=== PATIENT | female | born 1995 | race Caucasian/White ===

== ENCOUNTER 2017-07-27 21:26 | Emergency (ER) | payer OTHER ==
[2017-07-27] MEDS ORDERED: TAMIFLU75 M1 PO (22:03)
--- NOTE | 2017-07-28 00:28 | RADIOLOGY REPORT ---
PA AND LATERAL CHEST RADIOGRAPH CLINICAL INFORMATION: Cough, fever, and shortness of breath COMPARISON: None available. TECHNIQUE: 2 views of the chest were obtained. FINDINGS: Focal consolidation within the posterior aspect of the right lower lobe medially, most suggestive of pneumonia given the clinical history. The lungs are otherwise clear. There is no pneumothorax. Cardiac silhouette size is normal. There are no acute osseous findings. IMPRESSION: Imaging findings are most suggestive of right lower lobe pneumonia. Radiographic follow-up recommended following conservative treatment to document resolution.
[2017-07-28] MEDS ORDERED: IBUPROFEN800 M1 PO (00:40)
[2017-07-28] MEDS ORDERED: DOXYCYCLINE HY100 M4 PO (00:40)
[2017-07-28] MEDS ORDERED: PROAIR HFA8.5 GM INH (00:41)
--- NOTE | 2017-07-28 00:41 | ED INFLUENZA/URI COMPLAINT ---
History of Present Illness General Chief Complaint: Upper Respiratory Sx/Fever Stated Complaint: FLU LIKE SYMPTOMS,FEVER Source: patient Exam Limitations: no limitations Vital Signs & Intake/Output Vital Signs & Intake/Output Vital Signs Date Time Temp Pulse Resp B/P B/P Pulse O2 O2 Flow FiO2 Mean Ox Delivery Rate 07/278 97.7 07/277 97.7 07/272 101.8 122 22 106/72 97 Room Air ED Intake and Output 07/28 0000 07/27 1200 Intake Total 60 Output Total Balance 60 Intake, Oral 60 Patient 120 lb Weight Allergies Coded Allergies: NO KNOWN ALLERGIES (02/25/12) Reconcile Medications Albuterol Sulfate (Proair Hfa) 90 MCG HFA.AER.AD 2 PUF INH Q4-6 PRN PRN COUGH/ SOB Doxycycline Hyclate 100 MG TABLET 1 TAB PO BID PNA Ibuprofen 800 MG TABLET 1 TAB PO TID PAIN/FEVER Oseltamivir Phosphate (Tamiflu) 75 MG CAPSULE 1 CAP PO BID ANTIVIRAL ( Reported) Triage Note: PER PT DX WITH FLU 2 DAYS AGO, CONT WITH FEVER AND FEELING REALLY WEAK WITH COUGH,LASST TYLENOL WAS 6PM WITH MUCINEX, HAS NOT TAKEN 2ND DOSE OF TAMIFLU TODAY, ALSO ON PROMETHAZINE,COUGH MED BUT MAKES HER VOMIT Triage Nurses Notes Reviewed? yes Onset: Abrupt Duration: day(s): (2), constant, continues in ED, getting worse Timing: single episode today Severity: mild, moderate Severity Numbers: 7 Prior Episodes/Possible Cause: no prior episodes No Modifying Factors: none Associated Symptoms: cough, fever/chills, headache, muscle aches, nasal congestion, nasal drainage, wheezing LMP (ages 10-50): now : No Patient currently breastfeeds: No HPI: 22-year-old female medical history presents for evaluation of fever, body aches, cough, congestion, rhinorrhea and shortness of breath. Patient states that she was diagnosed with the flu yesterday and started on Tamiflu. She states that she has been having persistent fevers nausea worsening bodyaches worsening cough. She's been taking Tamiflu as directed but has not yet taken her dose today secondary to nausea. No vomiting diarrhea or abdominal pain. No urinary symptoms. She does not smoke no history of asthma. She does not have an inhaler at home. No chest pain or hemoptysis. Cough is productive of yellow sputum and worse at night. She has had decreased oral intake secondary to nausea. No sick contacts. (Sami Friedman) Past History Travel History Traveled to [place] past 21 day No Medical History Any Pertinent Medical History? see below for history Neurological: NONE EENT: NONE Cardiovascular: NONE Respiratory: NONE Gastrointestinal: NONE Hepatic: NONE Renal: NONE Psychiatric: NONE Endocrine: NONE Surgical History Surgical History: non-contributory Psychosocial History What is your primary language Pashto Tobacco Use: Never used Family History Hx Contributory? No (Sami Friedman) Review of Systems Review of Systems Constitutional: Reports: fever, malaise, weakness. EENTM: Reports: nasal congestion, throat pain. Respiratory: Reports: see HPI, cough, short of breath, sputum production. Cardiovascular: Reports: no symptoms. GI: Reports: see HPI, nausea. Genitourinary: Reports: no symptoms. Musculoskeletal: Reports: see HPI, back pain, muscle pain. Skin: Reports: no symptoms. Neurological/Psychological: Reports: no symptoms. Hematologic/Endocrine: Reports: no symptoms. Immunologic/Allergic: Reports: no symptoms. All Other Systems: Reviewed and Negative (Sami Friedman) Physical Exam Physical Exam General Appearance: well developed/nourished, alert, awake, mild distress, thin Head: atraumatic, normal appearance Eyes: Bilateral: normal appearance, PERRL, EOMI. Ears, Nose, Throat: moist mucous membrane, hearing grossly normal, Tympanic normal, pharynx normal, nasal congestion, nasal drainage Neck: normal inspection, supple, full range of motion Respiratory: chest non-tender, no respiratory distress, wheezing (MILD ) Cardiovascular: regular rate/rhythm, normal peripheral pulses Peripheral Pulses: 2+ radial (R), 2+ radial (L) Gastrointestinal: soft, non-tender, no organomegaly Back: normal inspection, normal range of motion, NO cva TENDERNESS Extremities: normal inspection, normal range of motion, no edema Neurologic/Psych: no motor/sensory deficits, awake, alert, oriented x 3, normal gait Skin: intact, normal color, warm/dry Lymphatic: no anterior cervical leeann Core Measures Sepsis Present: No Sepsis Focused Exam Completed? No (Sami Friedman) Progress Differential Diagnosis: influenza, otitis, pneumonia, pharyngitis, sinusitis Plan of Care: Orders Procedure Date/time Status URINE 07/27 2212 Complete URINALYSIS 07/27 2212 Complete Current Medications Sig/Angelo Start time Last Medication Dose Stop Time Status Admin Ibuprofen 800 MG ONCE ONE 07/27 2145 CAN (Motrin) 07/27 2146 Ondansetron HCl 4 MG ONCE ONE 07/27 2145 CAN (Zofran) 07/27 2146 Laboratory Tests 07/27/17 2330: Urinalysis LIGHT H, Urine Color BLDY H, Urine Clarity CLDY H, Urine pH 6.0, Ur Specific [place] <= 1.005, Urine Protein 100 H, Urine Ketones >=80, Urine Nitrite NEG, Urine Bilirubin NEG, Urine Urobilinogen 0.2, Ur Leukocyte Esterase SMALL H, Ur Microscopic SEDIMENT EXAMINED, Urine RBC PACKD H, Urine WBC 5-10 H, Ur Epithelial Cells MOD H, Urine Mucus FEW, Urine Hemoglobin LARGE H, Urine Glucose NEG, Urine Test NEGATIVE Microbiology 07/27 2133 NASOPHARYN: Influenza Virus A & B Rapid Smear - CAN Cancelled: Cancelled via OE: Per MD Decision She is seen and evaluated. She was diagnosed with influenza yesterday and started on Tamiflu. She currently has a fever of 101. She's had decreased oral intake. Patient was given a liter of normal saline IV Zofran and IV Tylenol. Her fever broke she is feeling much better. She is able tolerate fluids. Chest x-ray showed a right-sided pneumonia. She'll be started on doxycycline. Advised to continue Tamiflu for the full course. She'll be given pro-air for shortness of breath and cough. Alternate Tylenol and IV Profen every 6 hours. Follow-up with primary care doctor this week. Discussed return precautions in detail. No respiratory distress patient is afebrile nontoxic-appearing and agrees the plan. Diagnostic Imaging: Viewed by Me: Radiology Read. Discussed w/RAD: Radiology Read. CXR Impression: PATIENT: TRAM BURTON PRESENT AGE: 22 PATIENT ACCOUNT NO: [id number] : 94 LOCATION: [facility] ORDERING PHYSICIAN: Sami SALINAS SERVICE DATE: 07/27/17 EXAM TYPE: RAD - XRY-CHEST XRAY, PA AND LATERAL PA AND LATERAL CHEST RADIOGRAPH CLINICAL INFORMATION: Cough, fever, and shortness of breath COMPARISON: None available. TECHNIQUE: 2 views of the chest were obtained. FINDINGS: Focal consolidation within the posterior aspect of the right lower lobe medially, most suggestive of pneumonia given the clinical history. The lungs are otherwise clear. There is no pneumothorax. Cardiac silhouette size is normal. There are no acute osseous findings. IMPRESSION: Imaging findings are most suggestive of right lower lobe pneumonia. Radiographic follow-up recommended following conservative treatment to document resolution. DICTATED BY: Bin Monahan MD DATE/TIME DICTATED:07/28/1721 VISITING PROFESSOR:MARY DATE/TIME TRANSCRIBED:07/28/1721 CONFIDENTIAL, DO NOT COPY WITHOUT APPROPRIATE AUTHORIZATION. Initial ED EKG: none (Sami Friedman) Departure Departure Disposition: HOME OR SELF CARE Condition: Stable Clinical Impression Primary Impression: Pneumonia Qualifiers: Pneumonia type: due to unspecified organism Laterality: right Lung location: lower lobe of lung Qualified Code: J18.1 - Lobar pneumonia, unspecified organism Referrals: Patient Has No Primary Care Dr (PCP/Family) Additional Instructions: Rest and drink plenty of fluids. Continue Tamiflu as directed for the full course. Tylenol 1000 mg every 6 hours as needed for pain and fever. IBUProfen can also be used 800 mg every 8 hours with food as needed for pain or fevers. Take antibiotics as directed for the full course. Make a follow-up appointment with your primary care doctor this coming week. Use pro-air inhaler 2 puffs every 4-6 hours as needed for cough or shortness of breath. Monitor symptoms return with any concerns. Departure Forms: Customer Survey General Discharge Information Prescriptions: Current Visit Scripts Doxycycline Hyclate 1 TAB PO BID #20 TAB Ibuprofen 1 TAB PO TID #30 TAB Albuterol Sulfate (Proair Hfa) 2 PUF INH Q4-6 PRN PRN COUGH/SOB #1 INHAL (Sami Friedman) PA/[employer] Co-Sign Statement Statement: ED Attending supervision documentation- [] I saw and evaluated the patient. I have also reviewed all the pertinent lab results and diagnostic results. I agree with the findings and the plan of care as documented in the PA's/[employer]'s documentation. [X] I have reviewed the ED Record and agree with the PA's/[employer]'s documentation. [] Additions or exceptions (if any) to the PAs/[employer]'s note and plan are summarized below: [] (Neena PRABHAKAR,Donald Dior)
[2017-07-28 00:46] VITALS: BP 126/76
== END 2017-07-28 00:47 ==
LOC: ERH 21:26
DX: J18.9 Pneumonia, unspecified organism (principal)
CPT/HCPCS: 81001; 81025; 87804; 87804-59; 96374; 96375; J0131; J2405